=== PATIENT | female | born 1960 | race Caucasian/White ===

== ENCOUNTER 2017-01-23 07:37 | Day surgery (SDC) | payer OTHER ==
[~2017-01-23] VITALS: Ht 162.6 cm; Wt 68.0 kg
[~2017-01-23 07:37] MED LIST: 0.9% Sodium Chloride 1,000 ML IV SCH; NOMED; Sodium Chloride LOK Flush 10 mL Syringe IV PRN; fentaNYL-PF 50 mCg/mL 2 mL Inj IVPUSH PRN
[2017-01-23] MEDS ORDERED: ASPI-973 PO (07:55)
[2017-01-23 07:56] VITALS: BP 122/78; PULSE 92; RESP 16; O2SAT 97
[2017-01-23 08:56] VITALS: BP 133/68; PULSE 69; RESP 16; O2SAT 98
[2017-01-23 09:05] VITALS: BP 133/68; PULSE 76; RESP 16; O2SAT 98
[2017-01-23 09:15] VITALS: BP 124/72; PULSE 71; RESP 16; O2SAT 97
--- NOTE | 2017-01-23 11:58 | ENDO ---
[address] [address] ENDOSCOPY PROCEDURE PATIENT: MARSHALL NORTH : 1960 MR#: [id number] ADMIT: 01/23/2017 JOB ID: [id number] TYPE OF PROCEDURE: Colonoscopy INDICATIONS: Screening. Patient's ASA classification is one. Mallampati score was one. MEDICATIONS: 1. Versed 4 mg. 2. Fentanyl 100 mcg. INSTRUMENT USED: PCF-H180AL PREP QUALITY: Fair. PROCEDURE DETAILS: After informed consent was obtained, the patient was brought to the GI suite, where she was placed on oxygen via nasal cannula and monitored with continuous pulse oximeter, telemetry, and blood pressure monitoring. A time-out was performed. Then, she was placed in a left lateral decubitus position and medications were administered for sedation. Digital rectal exam was performed which was unremarkable. The colonoscope was then inserted into the rectum and advanced under direct visualization to the cecum, which was identified by the presence of the ileocecal valve and appendiceal orifice. Once the cecum was reached colonoscope was withdrawn back to the rectum. Mucosa and lumen were examined. In the rectum, retroflexion was performed. Following retroflexion, remaining air in the rectum was suctioned, and procedure was completed. FINDINGS: Normal exam from rectum to cecum. IMPRESSION: Normal colonoscopy. RECOMMENDATIONS: Repeat colonoscopy in 10 years, sooner if symptoms should dictate. COMPLICATIONS: None. ESTIMATED BLOOD LOSS: Zero.
== END 2017-01-23 23:59 | disposition home or self-care (01) ==
LOC: END 07:37
PROVIDERS: ATTEND Internal Medicine Gastroenterology
DX: Z12.11 Encounter for screening for malignant neoplasm of colon (principal)
CPT/HCPCS: G0121; G0500; J2250; J3010; J7030